=== PATIENT | female | born 1960 | race Caucasian/White ===

== ENCOUNTER 2022-06-17 06:19 | Day surgery (SDC) | payer BC, OTHER ==
[2022-06-17] MEDS ORDERED: Ringers Lactate 1,000 ML IV ONE (06:35)
[2022-06-17] MEDS ORDERED: propofoL 200 MG/20 ML VIAL IV ONE ×2 (07:18)
[2022-06-17] MEDS ORDERED: LIDOCAINE 1% MPF 5 ML VIAL ONE (07:18)
--- NOTE | 2022-06-17 08:07 | ENDO RPT ---
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 ESTIMATED BLOOD LOSS: None CONSENT: The patient understands the risks and benefits of the procedure and understands that these risks include, but are not limited to: sedation, allergic reaction, infection, perforation and/or bleeding. Alternative means of evaluation and treatment include, among others: physical exam, x-rays, and/or surgical intervention. The patient elects to proceed with this endoscopic procedure. DESCRIPTION OF PROCEDURE: During intra-op preparation period all mechanical medical equipment was checked for proper function. Hand hygiene and appropriate measures for infection prevention was taken. Procedure, possible complications, alternatives including, but not limited to possibility of bleeding, perforation, tear, infection, sepsis, need for surgery, need for blood transfusion, were explained to the patient. After the risks, benefits and alternatives of the procedure were thoroughly explained, Informed consent was verified, confirmed and timeout was successfully executed by the treatment team. The patient was placed in the left lateral position. A digital rectal exam was performed and revealed external hemorrhoids. After appropriate level of anesthesia, the scope was passed. The EC-[id number] ([id number]) endoscope was introduced through the anus and advanced to the cecum, which was identified by transillumination from the light source, the appendix, and the ileocecal valve. The instrument was then slowly withdrawn as the colon was fully examined. Scope withdrawal time was . COLON FINDINGS: Diverticula was found throughout the entire examined colon. The opening was medium sized. Two sessile polyps were found at approximately 50 and 40 cm fdrom anal verge. Retroflexed views revealed no abnormalities. The scope was then completely withdrawn from the patient and the procedure terminated. ADVERSE EVENTS: There were no complications. IMPRESSIONS: 1. Diverticula throughout the entire examined colon 2. Two sessile polyps ranging between 3-5mm in size were found; polypectomy was performed in a piecemeal fashion using hot forceps 3. External hemorrhoids 4. Internal hemorrhoids RECOMMENDATIONS: 1. follow-up: office 1 year(s) 2. await biopsy results 3. no seeds in diet RECALL: for Colonoscopy, pending biopsy results. Ángel Brooks MD eSigned: Ángel Brooks MD 06/17/2022 8:06 AM cc: Nathalie Law M.D. CPT CODES: ICD9 CODES:
[2022-06-17 08:36] VITALS: O2SAT 98
[2022-06-17 08:38] VITALS: BP 141/85; TEMP 97.3
== END 2022-06-17 08:41 | disposition home or self-care (01) ==
LOC: OR 06:19
PROVIDERS: ATTEND Surgery
PROC: 0DBK8ZX Excision of Ascending Colon, Via Natural or Artificial Opening Endoscopic, Diagnostic (ICD-10-PCS; principal; 2022-06-17 07:30)
DX: D12.2 Benign neoplasm of ascending colon (principal); K64.8 Other hemorrhoids; C18.9 Malignant neoplasm of colon, unspecified; K57.30 Diverticulosis of large intestine without perforation or abscess without bleeding; R19.7 Diarrhea, unspecified; Z86.010 Personal history of colon polyps; K64.4 Residual hemorrhoidal skin tags
CPT/HCPCS: 88305; 45384; J2704 ×2; J2001; J7120